=== PATIENT | female | born 1995 | race Two or more races ===

== ENCOUNTER 2025-07-01 17:06 | Emergency (ER) | payer MEDICAID, SELFPAY ==
[2025-07-01 17:08] VITALS: BMI 34.3
[2025-07-01 17:14] VITALS: BP 168/77; PULSE 95; RESP 20; TEMP 36.5; O2SAT 97
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
[2025-07-01] MEDS: DIPHTH,PERTUSS(ACELL),TET VAC 0.5 ML SYR- ADULT IMi (18:33)
== END 2025-07-01 18:43 | disposition home or self-care (01) ==
PROVIDERS: Emergency Provider Emergency Medicine; PCP Pediatrics
DX: S01.81XA Laceration without foreign body of other part of head, initial encounter (principal); Y04.2XXA Assault by strike against or bumped into by another person, initial encounter; Z23 Encounter for immunization
CPT/HCPCS: 12002; 90471; 90715; 99281